=== PATIENT | male | born 1940 | race Caucasian/White ===

== ENCOUNTER → 2020-06-29 | Outpatient (CLI) | payer OTHER | LOC: LAB 11:12 | PROVIDERS: Family Medicine | DX: E87.5 Hyperkalemia (principal); E83.42 Hypomagnesemia | CPT/HCPCS: 36415; 80048; 83735 ==

== ENCOUNTER → 2020-06-30 | Outpatient (CLI) | payer OTHER | LOC: LAB 09:56 | PROVIDERS: Family Medicine | DX: E87.5 Hyperkalemia (principal); E83.42 Hypomagnesemia | CPT/HCPCS: 36415; 80048; 83735 ==

== ENCOUNTER → 2020-07-03 | Outpatient (CLI) | payer OTHER | LOC: LAB 10:20 | PROVIDERS: Family Medicine | DX: E87.5 Hyperkalemia (principal) | CPT/HCPCS: 36415; 80048 ==

== ENCOUNTER → 2020-07-06 | Outpatient (CLI) | payer OTHER | LOC: LAB 11:05 | PROVIDERS: Family Medicine | DX: E87.5 Hyperkalemia (principal) | CPT/HCPCS: 80048 ==

== ENCOUNTER → 2021-01-17 | Outpatient (CLI) | payer OTHER ==
[~2021-01-17] MED LIST: AMARYL2 MG PO; ASPIRIN81 MG PO; CENTRUM SILVER1 EAC1 PO; COREG3.125 MG PO; CRESTOR20 MG PO; HYDRALAZINE HCL10 MG PO; JANUVIA100 MG PO; LANTUS100 UNIT/1 SQ; LASIX 40 MG TAB40 MG PO; LASIX20 MG PO; LEVOFLOXACIN750 MG PO; METFORMIN HCL1000 M1 PO; NEURONTIN600 MG PO; PHENERGAN 25 MG25 M1 PO; SENNA-S 8.6-501 EACH PO; SODIUM BICARBO650 MG PO; SYNTHROID75 MCG PO; ZOFRAN 4 MG TAB4 MG PO
== END ==
LOC: KOH-I 13:40
DX: C67.3 Malignant neoplasm of anterior wall of bladder (principal)
CPT/HCPCS: 93970

== ENCOUNTER 2021-01-18 15:07 | Inpatient (IN) | payer OTHER ==
[~2021-01-18] VITALS: Ht 172.7 cm; Wt 77.3 kg
[2021-01-18 16:33] LABS: HEMOGLOBIN 8.8 gm/dl (14.0-17.5); RED BLOOD COUNT 3.45 M/UL (4.20-5.50); WHITE BLOOD COUNT 6.3 K/UL (4.5-11.0)
[2021-01-19 07:43] LABS: RED BLOOD COUNT 3.22 M/UL (4.20-5.50); WHITE BLOOD COUNT 5.5 K/UL (4.5-11.0)
[2021-01-19] MEDS ORDERED: SYNTHROID75 MCG PO (20:13)
[2021-01-19] MEDS ORDERED: HYDRALAZINE HCL10 MG PO (20:14)
[2021-01-19] MEDS ORDERED: METFORMIN HCL1000 M1 PO (20:14)
[2021-01-19] MEDS ORDERED: COREG3.125 MG PO (20:14)
[2021-01-19] MEDS ORDERED: CENTRUM SILVER1 EAC1 PO (20:16)
[2021-01-19] MEDS ORDERED: LANTUS100 UNIT/1 SQ (20:16)
[2021-01-19] MEDS ORDERED: SODIUM BICARBO650 MG PO (20:17)
[2021-01-19] MEDS ORDERED: AMARYL2 MG PO (20:20)
[2021-01-19] MEDS ORDERED: JANUVIA100 MG PO (20:20)
[2021-01-19] MEDS ORDERED: ZOFRAN 4 MG TAB4 MG PO (20:21)
[2021-01-19] MEDS ORDERED: NEURONTIN600 MG PO (20:22)
[2021-01-19] MEDS ORDERED: PHENERGAN 25 MG25 M1 PO (20:22)
[2021-01-19] MEDS ORDERED: CRESTOR20 MG PO (20:23)
[2021-01-19] MEDS ORDERED: LASIX20 MG PO (20:23)
[2021-01-19] MEDS ORDERED: SENNA-S 8.6-501 EACH PO (20:23)
[2021-01-19] MEDS ORDERED: ASPIRIN81 MG PO (20:24)
[2021-01-20 07:11] LABS: HEMOGLOBIN 8.4 gm/dl (14.0-17.5); RED BLOOD COUNT 3.26 M/UL (4.20-5.50); WHITE BLOOD COUNT 5.5 K/UL (4.5-11.0)
[2021-01-21 06:19] LABS: HEMOGLOBIN 7.9 gm/dl (14.0-17.5); RED BLOOD COUNT 3.1 M/UL (4.20-5.50); WHITE BLOOD COUNT 5.7 K/UL (4.5-11.0)
[2021-01-21] MEDS ORDERED: LASIX 40 MG TAB40 MG PO (12:43)
[2021-01-21] MEDS ORDERED: LEVOFLOXACIN750 MG PO (13:31)
== END 2021-01-21 15:10 | DRG 683 ==
LOC: ER1 15:07 → CDU 18:15 → MED SURG 4 20:20
PROVIDERS: Preventive Medicine Occupational Medicine; ADMIT Internal Medicine
DX: N17.9 Acute kidney failure, unspecified (principal); I12.0 Hypertensive chronic kidney disease with stage 5 chronic kidney disease or end stage renal disease; N39.0 Urinary tract infection, site not specified; Z51.5 Encounter for palliative care; Z66 Do not resuscitate; Z20.822 Contact with and (suspected) exposure to COVID-19; N18.5 Chronic kidney disease, stage 5; E03.9 Hypothyroidism, unspecified; E11.22 Type 2 diabetes mellitus with diabetic chronic kidney disease; I25.10 Atherosclerotic heart disease of native coronary artery without angina pectoris; C67.9 Malignant neoplasm of bladder, unspecified; B96.1 Klebsiella pneumoniae [K. pneumoniae] as the cause of diseases classified elsewhere; E87.70 Fluid overload, unspecified; Z85.51 Personal history of malignant neoplasm of bladder; Z93.3 Colostomy status; Z79.01 Long term (current) use of anticoagulants; Z79.82 Long term (current) use of aspirin; Z95.1 Presence of aortocoronary bypass graft; Z88.0 Allergy status to penicillin; Z79.4 Long term (current) use of insulin
CPT/HCPCS: 36415; 71045; 80048; 80053; 81001; 82962; 83735; 83880; 84100; 85025; 85027; 86140; 87077; 87086; 87186; 96374; 96375; 99284; J0696; J1205; J1650; J1940; P9047; U0002